=== PATIENT | male | born 1985 | race Caucasian/White ===

== ENCOUNTER 2018-11-06 10:25 | Emergency (ER) | payer SELFPAY ==
[2018-11-06 11:08] VITALS: BP 118/63; PULSE 73; RESP 16; TEMP 36.6; O2SAT 98
--- NOTE | 2018-11-06 12:17 | W.ED.GENAD ---
Discharge Plan Disposition Patient Disposition: HOME Condition: Stable Discharge Details Chief Complaint: RespSymp Clinical Impression: Pneumonia, RAD (reactive airway disease) Primary Care Provider: None,None ED Provider: Margarita Colindres Home Meds and New Rx's Prescriptions: New doxycycline hyclate 100 mg tablet 100 mg PO BID Qty: 19 RF: 0 Discharge Instructions Instructions: Doxycycline (By mouth), Reactive Airways Disease (ED), Pneumonia (ED) Additional Instructions: Please return immediately to the emergency department if you develop any new or worsening symptoms or if you become otherwise concerned. It is extremely important that you make an appointment to be seen by a primary care doctor within the next 1-2 weeks in follow-up for this visit. Please call [phone] if you have any difficulty establishing this appointment. Discharge Data Discharge Date/Time-TO BE ENTERED AT DEPARTURE: 11/06/18 14:39 Medical Decision Making Obed Malik is a 33 y/o man with h/o asthma presenting to the emergency department with fevers, cough, and SOB in setting of no inhaler at home as not able to pay for one. On exam Pt is well and non-toxic appearing, normal WOB without resp distress, b/l exp wheeze throughout. Concern for asthma, influnze vs PNA vs other URI. Exam/hx not c/w other acute emergent life threatening infection, ACS, PE, metabolic/lyte derangement. Plan for duoneb, CXR, flu swab. CXR shows PNA. Plan to treat with doxy. Will dispense albuterol inh for home use. On reassessment Pt with no further wheeze. He reports feeling much better. Lengthy discussion with pt re: RTED precautions, importance of outpt f/u with PCP. Pt verbaluzes understanding of plan and is amenable. Pt placed on care management list for PCP. Medical Records Medical records reviewed: Yes I reviewed the patient's medical records. Imaging Data Radiologic Study: Attestation: I personally reviewed and interpreted this imaging study as follows: Radiologist's impression: CHEST X-RAY, PA AND LATERAL: No priors. The heart size and pulmonary vasculature are within normal limits. There are small scattered opacities seen in the left lower lobe suspicious for pneumonia. The right lung is clear. No effusions or pneumothoraces are identified. The bones appear intact. IMPRESSION: Left basilar airspace opacities raising the question of pneumonia. Lab Data Lab results reviewed: Yes I reviewed the patient's lab results. HPI General Mode of arrival: ambulatory. Date/Time Provider Initiated Documentation: 11/06/18 12:17. Limitations to Documentation: no limitations. Information obtained by: patient, RN notes reviewed and old records reviewed. HPI Narrative: Obed Malik is a 33-year-old man with a history of asthma presenting to the emergency department with 10 days of intermittent fever, cough, and body aches. Patient reports that his fever resolved several days ago, but his cough and body aches have persisted. He has also felt short of breath and has a history of asthma. He recently moved here from [place] and has no health insurance, and does not have an albuterol inhaler. Patient has felt as though he would have uses inhaler at home if he had one for wheezing and shortness of breath. He denies any pain, nausea/vomiting/diarrhea, rash, numbness/tingling/weakness. Has been eating and drinking as usual. Patient presents emergency department with 3 other family members with similar symptoms. Related Data Home Medications Medication Instructions Recorded Confirmed doxycycline hyclate 100 mg PO BID #19 tab 11/06/18 Previous Rx's Medication Instructions Recorded doxycycline hyclate 100 mg PO BID #19 tab 11/06/18 Allergies Allergy/AdvReac Type Severity Reaction Status Date / Time Penicillins Allergy Anaphylaxsi Unverified 11/06/18 11:13 s environmental allergies Allergy Uncoded 11/06/18 11:13 General Stated Complaint: RespSymp FITZ: 4 Review of Systems Review of Systems Constitutional: reports fevers Eyes: denies eye pain ENT: denies facial pain, dental pain, sore throat Cardiovascular: denies chest pain, edema Respiratory: reports SOB, cough GI: denies abdominal pain, vomiting, diarrhea : denies flank pain MSK: denies back pain, neck pain, arthralgias, reports myalgias Skin: denies rash Neuro: denies headaches, lightheadedness, weakness [facility] Social History Smoking/Tobacco Use Status: Current every day Exam Narrative Exam Narrative: Constitutional: well and [id number], pleasant, conversing normally HENT: head atraumatic, normocephalic normal inspection, mucous membranes moist Eyes: conjunctiva normal, sclera normal, pupils 3mm b/l Neck: no stridor, normal ROM, trachea midline Resp: normal work of breathing, b/l exp wheeze throughout Cardio: normal rate, normal rhythm, no murmur appreciated Skin: warm, dry, normal color, no rash Neuro: alert, not altered, grossly non-focal, normal tone, normal gait Ext: no edema Psych: normal mood, normal affect, normal behavior Course Vital Signs Temperature 36.6 C 11/06/18 11:08 Pulse 73 11/06/18 11:08 Respiratory Rate 16 11/06/18 11:08 Blood Pressure 118/63 11/06/18 11:08 Pulse Oximetry 98 11/06/18 11:08 Temperature 36.6 C 11/06/18 11:08 Temperature Source Temporal Artery Scan 11/06/18 11:08 Pulse 73 11/06/18 11:08 Respiratory Rate 16 11/06/18 11:08 Respiratory Effort Non-Labored 11/06/18 11:14 Respiratory Depth Normal 11/06/18 11:14 Blood Pressure 118/63 11/06/18 11:08 Blood Pressure Position Sitting 11/06/18 11:08 Pulse Oximetry 98 11/06/18 11:08 Oxygen Delivery Method Room Air 11/06/18 11:08 Oxygen Flow Rate 0 11/06/18 11:08 Pain Level 0 11/06/18 11:08
--- NOTE | 2018-11-06 12:46 | DI.RAD_ITS ---
SYMPTOMS/DIAGNOSIS: COUGH CHEST X-RAY, PA AND LATERAL: No priors. The heart size and pulmonary vasculature are within normal limits. There are small scattered opacities seen in the left lower lobe suspicious for pneumonia. The right lung is clear. No effusions or pneumothoraces are identified. The bones appear intact. IMPRESSION: Left basilar airspace opacities raising the question of pneumonia.
--- NOTE | 2018-11-06 13:49 | NUR.NOTE ---
patient had chest xray and flu swab sent Nursing Note:
[2018-11-06] MEDS: Doxycycline Hyclate 100 MG CAP PO (14:35)
[2018-11-06] MEDS: Albuterol HFA 8 GM 60 PUFF INH IH (14:35)
--- NOTE | 2018-11-06 14:37 | NUR.NOTE ---
patient medicated per MD order Nursing Note:
--- NOTE | 2018-11-09 08:01 | PDOC.ERCMPRO ---
Care Management Progress Note 11/09-Dr. 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 Referral faxed to [facility] this am.
--- NOTE | 2018-11-09 08:02 | CMPROGNOTE_ITS ---
Care Management Progress Note 11/09-Dr. 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 Referral faxed to [facility] this am.
== END 2018-11-06 14:39 | disposition home or self-care (01) ==
PROVIDERS: Emergency Provider Student in an Organized Health Care Education/Training Program
DX: J18.9 Pneumonia, unspecified organism (principal); J45.909 Unspecified asthma, uncomplicated
CPT/HCPCS: 87449; 94640; 99284; 71046